=== PATIENT | female | born 1985 | race Caucasian/White ===

== ENCOUNTER 2016-09-19 10:13 | Inpatient (IN) | payer BC ==
[~2016-09-19] VITALS: Ht 165.1 cm; Wt 109.5 kg
[2016-11-24] VITALS (18 sets, daily range): BP systolic 91–146; BP diastolic 57–94; PULSE 83–121; TEMP 97.7–98.3
[2016-11-24 07:41] LABS: BASO # 0.1 (0.0-0.2); BASO % 0.3 % (0.0-2.0); EOS # 0.1 (0.0-0.7); EOS % 0.5 % (0-4.0); GRAN # 12.7 (1.4-6.5); GRAN % 72.2 % (42.2-75.2); LYMPH # 3.1 (1.2-3.4); LYMPH % 17.6 % (20.0-51.0); MEAN CELL VOLUME 86 fl (80.0-100.0); MEAN CORPUSCULAR HGB CONC 34 g/dl (33.0-37.0); MEAN PLATELET VOLUME 10.9 fl (7.4-10.4); MONO # 1.4 (0.1-0.6); MONO % 8.2 % (1.7-9.3); PLATELET COUNT 286 K/mm3 (130-400); RED BLOOD COUNT 3.85 M/mm3 (4.10-5.30); REDCELL DISTRIBUTION WIDTH-CV 14.1 % (11.5-14.5); WHITE BLOOD COUNT 17.6 K/mm3 (4.8-10.8)
[2016-11-24] MEDS ORDERED: ZANTAC 7575 MG PO (07:41)
[2016-11-24] MEDS ORDERED: DICLEGIS PO (07:42)
[2016-11-24] MEDS ORDERED: PROBIOTIC FORMU1 CAP PO (07:43)
[2016-11-24] MEDS ORDERED: PRENATAL PO (07:43)
[2016-11-24] MEDS ORDERED: CALCIUM-500 5001 CTB PO (07:44)
[2016-11-24 07:51] LABS: HEMATOCRIT 33.1 % (37.0-47.0); HEMOGLOBIN 11.1 g/dl (12.5-16.0); MEAN CORPUSCULAR HEMOGLOBIN 29 pg (27.0-31.0)
[2016-11-25] VITALS: BP 106/70; PULSE 80; TEMP 97.9
[2016-11-25 04:30] VITALS: BP 106/54; PULSE 69; TEMP 98
[2016-11-25 08:25] VITALS: BP 128/72; PULSE 99; TEMP 97.7
[2016-11-25 17:30] VITALS: BP 130/73; PULSE 105; TEMP 98.3
[2016-11-25 21:00] VITALS: BP 122/70; PULSE 80; TEMP 98.8
[2016-11-26 07:29] VITALS: BP 123/98; PULSE 97; TEMP 98.1
[2016-11-26] MEDS ORDERED: MOTRIN 600600 MG/TAB PO (11:50)
[2016-11-26] MEDS ORDERED: PERCOCET 325 MG1 TA2 PO (11:51)
[2016-11-26 17:34] VITALS: BP 148/81; PULSE 110; TEMP 97.1
[2016-11-26 19:50] VITALS: BP 134/78; PULSE 110; TEMP 98.4
[2016-11-27 09:07] VITALS: BP 133/78; PULSE 108; TEMP 97.8
== END 2016-11-27 14:44 | disposition home or self-care (01) | DRG 765 ==
LOC: EDSTATUS 10:13 → LDRO 14:49 → OB 11-24 07:07 → LDR 11-24 10:14 → OB 11-27 14:44
PROVIDERS: Obstetrics & Gynecology
PROC: 10D00Z1 Extraction of Products of Conception, Low, Open Approach (ICD-10-PCS; principal; 2016-11-24)
DX: O32.1XX0 Maternal care for breech presentation, not applicable or unspecified (principal); O36.0130 Maternal care for anti-D [Rh] antibodies, third trimester, not applicable or unspecified; Z3A.39 39 weeks gestation of pregnancy; Z37.0 Single live birth
CPT/HCPCS: J0690; J1885; J2175; J2270; J2405; J2590; J7120